=== PATIENT | male | born 1980 | race Caucasian/White ===

== ENCOUNTER 2021-09-01 14:50 | Emergency (ER) | payer SELFPAY ==
[~2021-09-01] VITALS: Ht 180.3 cm; Wt 61.2 kg
[2021-09-01 15:44] LABS: BASOPHILS ABSOLUTE AUTO 0.11 K/mm3 (0.00-0.23); BASOPHILS PERCENT AUTO 1 % (0-2); EOSINOPHILS ABSOLUTE AUTO 0.06 K/mm3 (0.00-0.68); EOSINOPHILS PERCENT AUTO 1 % (0-6); Hematocrit 45.2 % (37.0-53.0); IMMATURE GRAN ABSOLUTE AUTO 0.04 K/mm3 (0.00-0.10); IMMATURE GRAN PERCENT AUTO 0 % (0-1); LYMPHOCYTES ABSOLUTE AUTO 1.07 K/mm3 (0.84-5.20); LYMPHOCYTES PERCENT AUTO 11 % (21-46); MONOCYTES ABSOLUTE AUTO 0.69 K/mm3 (0.16-1.47); MONOCYTES PERCENT AUTO 7 % (4-13); Mean Corpuscular HGB 34.3 pg (26.0-34.0); Mean Corpuscular HGB Conc 33.2 g/dL (31.5-36.5); Mean Corpuscular Volume 103 fL (80-100); Mean Platelet Volume 10.2 fL (9.1-12.4); NEUTROPHILS ABSOLUTE AUTO 7.87 K/mm3 (1.96-9.15); NEUTROPHILS PERCENT AUTO 80 % (41-73); Platelet Count 320 K/mm3 (150-400); Red Blood Cell Count 4.37 M/mm3 (4.30-5.90); White Blood Cell Count 9.84 K/mm3 (4.00-11.30)
[2021-09-01 16:11] LABS: Alanine Aminotransfer (ALT/SGP 228 U/L (12-78); Albumin, Blood 4.3 g/dL (3.4-5.0); Alk Phos 148 U/L (50-136); Anion Gap 6 mmol/L (6-16); Aspartate Aminotrans (AST/SGOT 144 U/L (12-37); Bilirubin, Total 0.5 mg/dL (0.1-1.0); Blood Urea Nitrogen 7 mg/dL (8-24); Bun/Creatinine Ratio 13.1 (12.0-20.0); CO2, Blood 32 mmol/L (21-32); Calcium, Blood 9.4 mg/dL (8.5-10.1); Chloride, Blood 103 mmol/L (98-108); Creatinine, Blood 0.54 mg/dL (0.60-1.20); Globulin, Blood 4.3 g/dL (2.2-4.0); Glomerular Filtration Rate >60 (60-); Glucose, Blood 119 mg/dL (70-99); Potassium, Blood 4.4 mmol/L (3.5-5.5); Sodium, Blood 141 mmol/L (136-145); Total Protein, Blood 8.6 g/dL (6.4-8.2)
== END 2021-09-01 21:01 | disposition home or self-care (01) ==
LOC: ER 14:50
PROVIDERS: Physician Assistant
DX: K59.00 Constipation, unspecified (principal); Z91.013 Allergy to seafood; F17.200 Nicotine dependence, unspecified, uncomplicated; F10.10 Alcohol abuse, uncomplicated
CPT/HCPCS: 36415; 74019; 80053; 85025; 99283-25

== ENCOUNTER 2022-12-12 19:56 | Emergency (ER) | payer SELFPAY ==
[~2022-12-12] VITALS: Ht 180.3 cm; Wt 59.0 kg
[2022-12-12 20:58] LABS: BASOPHILS ABSOLUTE AUTO 0.14 K/mm3 (0.00-0.23); BASOPHILS PERCENT AUTO 1 % (0-2); EOSINOPHILS ABSOLUTE AUTO 0.15 K/mm3 (0.00-0.68); EOSINOPHILS PERCENT AUTO 1 % (0-6); Hematocrit 31.6 % (37.0-53.0); Hemoglobin 10.7 g/dL (13.5-17.5); IMMATURE GRAN ABSOLUTE AUTO 0.04 K/mm3 (0.00-0.10); IMMATURE GRAN PERCENT AUTO 0 % (0-1); LYMPHOCYTES ABSOLUTE AUTO 2.37 K/mm3 (0.84-5.20); LYMPHOCYTES PERCENT AUTO 18 % (21-46); MONOCYTES ABSOLUTE AUTO 1.08 K/mm3 (0.16-1.47); MONOCYTES PERCENT AUTO 8 % (4-13); Mean Corpuscular HGB 31.8 pg (26.0-34.0); Mean Corpuscular HGB Conc 33.9 g/dL (31.5-36.5); Mean Corpuscular Volume 94 fL (80-100); Mean Platelet Volume 10.2 fL (9.1-12.4); NEUTROPHILS ABSOLUTE AUTO 9.33 K/mm3 (1.96-9.15); NEUTROPHILS PERCENT AUTO 71 % (41-73); Platelet Count 198 K/mm3 (150-400); RDW Standard Deviation 57.7 fL (35.1-46.3); Red Blood Cell Count 3.36 M/mm3 (4.30-5.90); White Blood Cell Count 13.11 K/mm3 (4.00-11.30)
[2022-12-12 21:20] LABS: Albumin, Blood 3.3 g/dL (3.4-5.0); Albumin/Globulin Ratio 0.7 (0.8-1.8); Bilirubin, Total 1.1 mg/dL (0.1-1.0); Bun/Creatinine Ratio 46.1 (12.0-20.0); Calcium, Blood 8.9 mg/dL (8.5-10.1); Creatinine, Blood 0.52 mg/dL (0.60-1.20); Globulin, Blood 4.6 g/dL (2.2-4.0); Potassium, Blood 3.7 mmol/L (3.5-5.5); Total Protein, Blood 7.9 g/dL (6.4-8.2)
[2022-12-12 22:46] LABS: Bilirubin, Direct 0.5 mg/dL (0.0-0.3); Bilirubin, Indirect 0.6 mg/dL (0.1-0.7)
[2022-12-12 23:18] LABS: International Normalized Ratio 1.19; Prothrombin Time Results 12.4 Sec (9.7-11.5)
[2022-12-13 02:45] VITALS: BP 118/71
== END 2022-12-13 03:21 | disposition short-term general hospital (02) ==
LOC: ER 19:56
PROVIDERS: Physician Assistant; Student in an Organized Health Care Education/Training Program
DX: K92.2 Gastrointestinal hemorrhage, unspecified (principal); D62 Acute posthemorrhagic anemia; E80.6 Other disorders of bilirubin metabolism; Z91.013 Allergy to seafood; F17.210 Nicotine dependence, cigarettes, uncomplicated
CPT/HCPCS: 76705; 80053; 82248; 82272; 85025; 85610; 85730; 86850; 86900; 86901; 96365; 96366; 96375; 99285-25; C9113; J0696; J2354; J7050

== ENCOUNTER 2023-02-28 18:53 | Inpatient (IN) | payer OTHER ==
[2023-02-28] VITALS (13 sets, daily range): BP systolic 89–108; BP diastolic 52–75
[~2023-02-28] VITALS: Ht 180.3 cm; Wt 52.6 kg
[2023-02-28 19:33] LABS: BASOPHILS ABSOLUTE AUTO 0.01 K/mm3 (0.00-0.23); BASOPHILS PERCENT AUTO 0 % (0-2); EOSINOPHILS PERCENT AUTO 2 % (0-6); IMMATURE GRAN ABSOLUTE AUTO 0.06 K/mm3 (0.00-0.10); IMMATURE GRAN PERCENT AUTO 1 % (0-1); LYMPHOCYTES ABSOLUTE AUTO 2.39 K/mm3 (0.84-5.20); LYMPHOCYTES PERCENT AUTO 22 % (21-46); MONOCYTES ABSOLUTE AUTO 0.98 K/mm3 (0.16-1.47); MONOCYTES PERCENT AUTO 9 % (4-13); Mean Corpuscular HGB 29.5 pg (26.0-34.0); Mean Corpuscular HGB Conc 30.3 g/dL (31.5-36.5); Mean Corpuscular Volume 98 fL (80-100); Mean Platelet Volume 10.6 fL (9.1-12.4); NEUTROPHILS PERCENT AUTO 66 % (41-73); Platelet Count 285 K/mm3 (150-400); RDW Coefficient Variation 16.4 % (11.7-14.2); Red Blood Cell Count 1.22 M/mm3 (4.30-5.90); White Blood Cell Count 10.74 K/mm3 (4.00-11.30)
[2023-02-28 19:38] LABS: Hematocrit 11.9 % (37.0-53.0); Hemoglobin 3.6 g/dL (13.5-17.5)
[2023-02-28 19:46] LABS: Albumin, Blood 2.7 g/dL (3.4-5.0); Albumin/Globulin Ratio 0.8 (0.8-1.8); Bilirubin, Total 0.4 mg/dL (0.1-1.0); Bun/Creatinine Ratio 30.4 (12.0-20.0); Creatinine, Blood 1.48 mg/dL (0.60-1.20); Globulin, Blood 3.4 g/dL (2.2-4.0); Potassium, Blood 3.9 mmol/L (3.5-5.5); Total Protein, Blood 6.1 g/dL (6.4-8.2)
[2023-02-28 20:17] LABS: Magnesium, Blood 2.1 mg/dL (1.6-2.4)
[2023-02-28 20:54] LABS: International Normalized Ratio 1.16; Prothrombin Time Results 12.1 Sec (9.7-11.5)
[2023-02-28 22:13] LABS: U Amphetamine Screen Not Detected; U Barbituate Screen Not Detected; U Benzodiazapine Screen Not Detected; U Buprenorphine Screen Not Detected; U Cannabinoids Screen Not Detected; U Cocaine Screen Not Detected; U Methadone Screen Not Detected; U Methamphetamine Screen Not Detected; U Opiates Screen Not Detected; U Oxycodone Screen Not Detected; U Phencyclidine Screen Not Detected; U Propoxyphene Screen Not Detected
[2023-03-01] VITALS (68 sets, daily range): BP systolic 96–158; BP diastolic 36–103
--- NOTE | 2023-03-01 | NUR ---
PT ARRIVES TO ICU 5 FROM ED AT 2210. PT IN PROCESS OF COMPLETING FIRST OF 3 UNITS PRBC'S. NO S/S TRANSFUSION REACTIONS TO NOTE. PT ALERT AND ORIENTED. PLEASANT AND COOPERATIVE WITH CARE AND ASSESSMENT. GOOD HISTORIAN. WILL REVIEW CHART AND PLAN OF CARE FOR THIS PT.
--- NOTE | 2023-03-01 04:00 | NUR ---
PT COMPLETES 3/3 UNITS PRBC'S. TOLERATED THIS VERY WELL. RECHECK OF AM LABS DONE. PENDING RESULTS. NO S/S BLEEDING. PT HAS VOIDED 450 ML. DOES STATE THAT HE IS FEELING MUCH BETTER AFTER THE TRANSFUSION.
[2023-03-01 05:11] LABS: Hematocrit 22.2 % (37.0-53.0); Hemoglobin 7.3 g/dL (13.5-17.5); Mean Corpuscular HGB 29.8 pg (26.0-34.0); Mean Corpuscular HGB Conc 32.9 g/dL (31.5-36.5); Mean Platelet Volume 10.4 fL (9.1-12.4); Platelet Count 246 K/mm3 (150-400); RDW Coefficient Variation 15.5 % (11.7-14.2); RDW Standard Deviation 49.7 fL (35.1-46.3); Red Blood Cell Count 2.45 M/mm3 (4.30-5.90); White Blood Cell Count 8.16 K/mm3 (4.00-11.30)
[2023-03-01 05:15] LABS: Mean Corpuscular Volume 91 fL (80-100)
[2023-03-01 05:34] LABS: Albumin, Blood 2.5 g/dL (3.4-5.0); Albumin/Globulin Ratio 0.8 (0.8-1.8); Bilirubin, Total 1.9 mg/dL (0.1-1.0); Bun/Creatinine Ratio 29.5 (12.0-20.0); Calcium, Blood 8.2 mg/dL (8.5-10.1); Creatinine, Blood 1.29 mg/dL (0.60-1.20); Globulin, Blood 3.2 g/dL (2.2-4.0); Potassium, Blood 4.1 mmol/L (3.5-5.5); Total Protein, Blood 5.7 g/dL (6.4-8.2)
--- NOTE | 2023-03-01 06:45 | NUR ---
PT ABLE TO MOVE ABOUT BED ON HIS OWN. HAS REMAINED ALERT AND ORIENTED. H/H STABLE WITH HGB 7.3. DR JACKSON HAS COME IN TO UNIT. UPDATE GIVEN. WILL CONTINUE TO MONITOR PT, AND WILL REPORT OFF TO ONCOMING RN.
--- NOTE | 2023-03-01 07:00 | NUR ---
ASSUMPTION OF CARE: ASSUMED CARE OF PATIENT WITH BRIDGET JIMENEZ. PATIENT RESTING COMFORTABLY IN BED. PATIENT DENIES PAIN, NAUSEA OR DISCOMFORT. NO SIGNS/SYMPTOMS OF BLEEDING. HR IN THE 90S. SBPS IN THE 110S - 120S. PATIENT SPO2 >95% ON RA. BREATHING IS EVEN AND REGULAR.
[2023-03-01 08:35] LABS: Hematocrit 21.8 % (37.0-53.0); Hemoglobin 7.2 g/dL (13.5-17.5)
[2023-03-01 13:29] LABS: Hemoglobin 7.2 g/dL (13.5-17.5)
--- NOTE | 2023-03-01 17:09 | NUR ---
DAY SURGERY PT ARRIVING TO SDS VIA GURNEY. PT IS ALERT AND ORIENTED COMMUNICATING TO STAFF APPROPRIATELY. PT'S VSS AND ON CONTINUOUS SPO2 MONITORING. PT'S LS HAVE EXPIRATORY WHEEZE TO SO DUONEB GIVEN PER MD ORDER. PT HAS SANDOSTATIN, PROTONIX GTT'S RUNNING PER EMAR.
--- NOTE | 2023-03-01 17:37 | NUR ---
03/01/23 1737 Camila Love HISTORY, CHART, MEDICATIONS AND ALLERGIES REVIEWED BEFORE START OF PROCEDURE. PATIENT CONFIRMS NPO STATUS AND AGREES WITH SCHEDULED PROCEDURE. 3-LEAD EKG REVIEWED WITH PHYSICIAN PRIOR TO START OF PROCEDURE. MONITOR INTACT WITH CONTINUOUS PULSE OXIMETRY,CAPNOGRAPHY, 3-LEAD EKG, INTERMITTENT BP. SUPPLEMENTAL O2 TO BE TITRATED THROUGHOUT PROCEDURE TO MAINTAIN O2 SATURATION ABOVE 90%. PATIENT DETERMINED TO BE ASA APPROPRIATE FOR PROPOFOL SEDATION PRIOR TO START OF PROCEDURE BY DR. JACKSON.
--- NOTE | 2023-03-01 19:24 | NUR ---
SHIFT SUMMARY: NEURO: PATIENT ALERT AND ORIENTED X4 THROUGHOUT THE SHIFT. PATIENT DENIED PAIN OR DISCOMFORT THROUGHOUT THE SHIFT. PATIENT DENIED NUMBNESS/TINGLING. EQUAL STRENGTH ACROSS EXTREMITIES. CARDIAC: PATIENT DENIES CHEST PRESSURE OR DISCOMFORT. BPS IN THE 110S-120S. HR IN THE 70-90S. RESPIRATORY: PATIENT DENIED SHORTNESS OF BREATH OR DIFFICULTY BREATHING. PATIENT HAS WHEEZES AT TIMES. PATIENT REPORTS LONG HISTORY OF SMOKING. DENIED NEED FOR PATCHES. 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 GI/: PATIENT DENIED NAUSEA OR ABDOMINAL DISCOMFORT. NON-TENDER ABDOMEN WITH PALPATION. ACTIVE BOWEL SOUNDS. NO TARRY STOOL OR BLOODY EMESIS. PATIENT VOIDING WITHOUT DIFFICULTY. MUSCULOSKELETAL: PATIENT ABLE TO REPOSITION INDEPENDENTLY IN BED. ABLE TO STAND AT BEDSIDE TO VOID. PSYCHSOCIAL: PATIENT REPORTED LEAVING HIS JOB AT THE END OF THE SUMMER. PATIENT REPORTED TO RN THAT HE IS DOING OKAY FINANCIALLY. PATIENT VISITED BY A GOOD FRIEND TODAY THAT IS A SOURCE OF SUPPORT. PATIENT CALM AND COOPERATIVE.
--- NOTE | 2023-03-01 21:46 | NUR ---
ASSUMED CARE PT A&O X4; RESTING QUIETLY. PLEASANT AND COOPERATIVE W/ CARE. AMBULATED TO TOILET AT START OF SHIFT, HAS SINCE BEEN SLEEPING.
[2023-03-02] VITALS: BP 100/64
[2023-03-02 03:25] LABS: Hematocrit 22.3 % (37.0-53.0); Hemoglobin 7.4 g/dL (13.5-17.5); Mean Corpuscular HGB 30.3 pg (26.0-34.0); Mean Corpuscular HGB Conc 33.2 g/dL (31.5-36.5); Mean Corpuscular Volume 91 fL (80-100); Mean Platelet Volume 10.1 fL (9.1-12.4); Platelet Count 257 K/mm3 (150-400); RDW Coefficient Variation 17.3 % (11.7-14.2); Red Blood Cell Count 2.44 M/mm3 (4.30-5.90); White Blood Cell Count 7.72 K/mm3 (4.00-11.30)
[2023-03-02 03:42] LABS: Magnesium, Blood 1.6 mg/dL (1.6-2.4)
[2023-03-02 03:43] LABS: Bun/Creatinine Ratio 20.3 (12.0-20.0); Creatinine, Blood 1.23 mg/dL (0.60-1.20); Potassium, Blood 4.3 mmol/L (3.5-5.5)
[2023-03-02 04:00] VITALS: BP 118/80
--- NOTE | 2023-03-02 05:48 | NUR ---
SHIFT SUMMARY PT SLEPT/RESTED QUIETLY THROUGHOUT MOST OF NIGHT. USED CALL LIGHT APPROPRIATELY FOR ASSISTANCE W/ IV MANAGEMENT WHILE AMBULATING TO TOILET. IS WATCHING TV AT TIME OF THIS NOTE W/ NO COMPLAINTS. NO ACUTE EVENTS OVERNIGHT.
--- NOTE | 2023-03-02 07:00 | NUR ---
ASSUMPTION OF CARE: ASSUMED CARE OF PATIENT WITH BRIDGET JIMENEZ. PATIENT RESTING QUIETLY IN BED. PATIENT DENIES PAIN OR DISCOMFORT. SBP IN THE 110S. HR IN THE 80S-LOW 100S. PATIENT DENIES NAUSEA/EMESIS. NO BLOODY/TARRY STOOLS IN THE NIGHT. PATIENT UP IN THE ROOM. PATIENT STEADY ON HIS FEET. PATIENT DENIES DIZZINESS OR SHORTNESS OF BREATH. LUNG SOUND DIMINISHED THROUGHOUT. SPO2 IS 90-92% ON RA WHEN SLEEPING. ONCE PATIENT WAS IN THE CHAIR, SPO2 94%. ASSISTED WITH DEEP BREATHING AND COUGHING.
[2023-03-02 08:00] VITALS: BP 122/77
[2023-03-02] MEDS ORDERED: PANT20 PO (11:42)
[2023-03-02] MEDS ORDERED: FERSU300 PO (11:43)
[2023-03-02] MEDS ORDERED: MULVITA PO (11:44)
[2023-03-02] MEDS ORDERED: NICOTINE GUM2 M1 PO (11:44)
[2023-03-02 12:00] VITALS: BP 117/76
--- NOTE | 2023-03-02 13:25 | NUR ---
DISCHARGE SUMMARY: PATIENT RX FAXED TO [facility] PER PATIENT REQUEST. DISCHARGE INSTRUCTIONS AND EDUCATION PROVIDED. ALL QUESTIONS AND CONCERNS ADDRESSED. PATIENT DISCHARGED IN WHEELCHAIR WITH RN. PATIENT STABLE AT TIME OF DISCHARGE. NEURO: PATIENT DENIED PAIN OR DISCOMFORT THROUGHOUT THE SHIFT. PATIENT ALERT AND ORIENTED X4 THROUGHOUT. PATIENT DENIED NUMBNESS/TINGLING THROUGHOUT. CARDIAC: PATIENT DENIED CHEST PAIN OR DISCOMFORT. HR IN THE 80-90S. MILD TACHYCARDIA (LOW 100S) WITH ACTIVITY. PATIENT DENIED DIZZINESS OR LIGHTHEADEDNESS. SBP IN THE 110S-120S. GI/: PATIENT CONTINUES TO DENY NAUSEA. TOLERATING PO INTAKE WITHOUT GASTRIC DISTRESS OR DISCOMFORT. NO SIGNS OR SYMPTOMS OF BLEEDING. VOIDING CLEAR, DARK YELLOW URINE. DENIES DIFFICULTY VOIDING. PSYCHSOCIAL: PATIENT CALM AND COOPERATIVE. PATIENT REPORTS THAT HE IS LOOKING FOR WORK, BUT DOES HAVE ENOUGH MONEY RIGHT NOW. PATIENT VISITED YESTERDAY BY WINDOWS SECURITY ANALYST TO ASSIST WITH GETTING INSURANCE.
== END 2023-03-02 13:05 | disposition home or self-care (01) | DRG 811 ==
LOC: ER 18:53 → ICUE 21:14 → ERHOLD 21:14 → ICUE 22:10
PROVIDERS: Emergency Medicine; Internal Medicine; Internal Medicine Gastroenterology; Nurse Practitioner Acute Care; ADMIT Internal Medicine
PROC: 30233N1 Transfusion of Nonautologous Red Blood Cells into Peripheral Vein, Percutaneous Approach (ICD-10-PCS; 2023-02-28)
PROC: 0DB68ZX Excision of Stomach, Via Natural or Artificial Opening Endoscopic, Diagnostic (ICD-10-PCS; principal; 2023-03-01 15:00)
DX: D62 Acute posthemorrhagic anemia (principal); K25.4 Chronic or unspecified gastric ulcer with hemorrhage; N17.9 Acute kidney failure, unspecified; K70.30 Alcoholic cirrhosis of liver without ascites; R94.31 Abnormal electrocardiogram [ECG] [EKG]; F10.20 Alcohol dependence, uncomplicated; Z91.013 Allergy to seafood; F17.210 Nicotine dependence, cigarettes, uncomplicated; Z98.890 Other specified postprocedural states
CPT/HCPCS: 36430; 76705; 80048; 80053; 82105; 82728; 83540; 83550; 83735; 85014; 85018; 85025; 85027; 85610; 86850; 86900; 86901; 86923; 88305; 88342; 93005; 93010; 96365; 96367; 96375; 99285-25; C1751; C9113; J0696; J2250; J2354; J2704; J7030; J7050; J7120; P9016

== ENCOUNTER 2023-05-19 01:29 | Emergency (ER) | payer OTHER ==
[~2023-05-19] VITALS: Ht 177.8 cm; Wt 54.4 kg
[~2023-05-19 01:29] MED LIST: FERSU300 PO; MULVITA PO; NICOTINE GUM2 M1 PO; PANT20 PO
[2023-05-19 02:46] LABS: BASOPHILS ABSOLUTE AUTO 0.06 K/mm3 (0.00-0.23); BASOPHILS PERCENT AUTO 1 % (0-2); EOSINOPHILS ABSOLUTE AUTO 0.16 K/mm3 (0.00-0.68); EOSINOPHILS PERCENT AUTO 2 % (0-6); Hematocrit 21.7 % (37.0-53.0); IMMATURE GRAN ABSOLUTE AUTO 0.03 K/mm3 (0.00-0.10); IMMATURE GRAN PERCENT AUTO 0 % (0-1); LYMPHOCYTES ABSOLUTE AUTO 1.89 K/mm3 (0.84-5.20); LYMPHOCYTES PERCENT AUTO 23 % (21-46); MONOCYTES ABSOLUTE AUTO 0.82 K/mm3 (0.16-1.47); MONOCYTES PERCENT AUTO 10 % (4-13); Mean Corpuscular HGB 28.3 pg (26.0-34.0); Mean Corpuscular HGB Conc 32.3 g/dL (31.5-36.5); Mean Corpuscular Volume 88 fL (80-100); Mean Platelet Volume 10.4 fL (9.1-12.4); NEUTROPHILS ABSOLUTE AUTO 5.41 K/mm3 (1.96-9.15); NEUTROPHILS PERCENT AUTO 65 % (41-73); Platelet Count 171 K/mm3 (150-400); RDW Coefficient Variation 18.2 % (11.7-14.2); RDW Standard Deviation 58.2 fL (35.1-46.3); Red Blood Cell Count 2.47 M/mm3 (4.30-5.90); White Blood Cell Count 8.37 K/mm3 (4.00-11.30)
[2023-05-19 03:30] LABS: Albumin, Blood 3.1 g/dL (3.4-5.0); Albumin/Globulin Ratio 0.8 (0.8-1.8); Bilirubin, Total 0.6 mg/dL (0.1-1.0); Bun/Creatinine Ratio 75.8 (12.0-20.0); Calcium, Blood 8.4 mg/dL (8.5-10.1); Creatinine, Blood 0.74 mg/dL (0.60-1.20); Globulin, Blood 3.7 g/dL (2.2-4.0); Potassium, Blood 4.5 mmol/L (3.5-5.5); Total Protein, Blood 6.8 g/dL (6.4-8.2)
[2023-05-19 05:10] LABS: International Normalized Ratio 1.25
[2023-05-19 07:11] VITALS: BP 115/44
== END 2023-05-19 07:15 | disposition short-term general hospital (02) ==
LOC: ER 01:29
PROVIDERS: Student in an Organized Health Care Education/Training Program
DX: K92.2 Gastrointestinal hemorrhage, unspecified (principal); D64.9 Anemia, unspecified; F17.200 Nicotine dependence, unspecified, uncomplicated; Z86.59 Personal history of other mental and behavioral disorders; Z79.899 Other long term (current) drug therapy; Z91.013 Allergy to seafood
CPT/HCPCS: 36430; 80053; 82272; 85025; 85610; 86850; 86900; 86901; 86923; 96365; 96366; 96368; 96375; 96376; 99285-25; C9113; J0696; J1364; J2354; J2405; J7030; J7050; P9016

== ENCOUNTER → 2024-01-03 | Outpatient (CLI) | payer OTHER ==
[2024-01-03 17:20] LABS: BASOPHILS ABSOLUTE AUTO 0.08 K/mm3 (0.00-0.23); BASOPHILS PERCENT AUTO 2 % (0-2); EOSINOPHILS ABSOLUTE AUTO 0.18 K/mm3 (0.00-0.68); EOSINOPHILS PERCENT AUTO 4 % (0-6); Hematocrit 32.2 % (37.0-53.0); Hemoglobin 9.3 g/dL (13.5-17.5); IMMATURE GRAN ABSOLUTE AUTO 0.01 K/mm3 (0.00-0.10); IMMATURE GRAN PERCENT AUTO 0 % (0-1); LYMPHOCYTES ABSOLUTE AUTO 1.13 K/mm3 (0.84-5.20); LYMPHOCYTES PERCENT AUTO 27 % (21-46); MONOCYTES ABSOLUTE AUTO 0.41 K/mm3 (0.16-1.47); MONOCYTES PERCENT AUTO 10 % (4-13); Mean Corpuscular HGB 21.8 pg (26.0-34.0); Mean Corpuscular HGB Conc 28.9 g/dL (31.5-36.5); Mean Corpuscular Volume 76 fL (80-100); Mean Platelet Volume 9.9 fL (9.1-12.4); NEUTROPHILS ABSOLUTE AUTO 2.35 K/mm3 (1.96-9.15); NEUTROPHILS PERCENT AUTO 57 % (41-73); Platelet Count 204 K/mm3 (150-400); RDW Coefficient Variation 25.2 % (11.7-14.2); RDW Standard Deviation 68.9 fL (35.1-46.3); Red Blood Cell Count 4.26 M/mm3 (4.30-5.90); White Blood Cell Count 4.16 K/mm3 (4.00-11.30)
[2024-01-03 17:56] LABS: Percent Saturation 3.6 % (20.0-50.0)
[2024-01-03 17:59] LABS: Albumin, Blood 3.4 g/dL (3.4-5.0); Albumin/Globulin Ratio 0.8 (0.8-1.8); Bilirubin, Total 0.6 mg/dL (0.1-1.0); Bun/Creatinine Ratio 19.1 (12.0-20.0); Calcium, Blood 9.2 mg/dL (8.5-10.1); Creatinine, Blood 0.84 mg/dL (0.60-1.20); Globulin, Blood 4.3 g/dL (2.2-4.0); Potassium, Blood 4.7 mmol/L (3.5-5.5); Total Protein, Blood 7.7 g/dL (6.4-8.2)
== END ==
LOC: LAB SHORT 16:00 → LAB 16:00
PROVIDERS: Nurse Practitioner Family
DX: D50.8 Other iron deficiency anemias (principal)
CPT/HCPCS: 80053; 82728; 83540; 83550; 85025

== ENCOUNTER 2024-03-10 14:01 | Emergency (ER) | payer OTHER ==
[~2024-03-10] VITALS: Ht 165.1 cm; Wt 65.8 kg
[2024-03-10] MEDS ORDERED: Pantoprazole Sodium 40 MG Injection IV ONE ×2 (14:25→15:40)
[2024-03-10 14:55] LABS: BASOPHILS ABSOLUTE AUTO 0.04 K/mm3 (0.00-0.23); BASOPHILS PERCENT AUTO 1 % (0-2); EOSINOPHILS ABSOLUTE AUTO 0.14 K/mm3 (0.00-0.68); EOSINOPHILS PERCENT AUTO 3 % (0-6); Hemoglobin 8.1 g/dL (13.5-17.5); IMMATURE GRAN ABSOLUTE AUTO 0.01 K/mm3 (0.00-0.10); IMMATURE GRAN PERCENT AUTO 0 % (0-1); LYMPHOCYTES ABSOLUTE AUTO 1.03 K/mm3 (0.84-5.20); LYMPHOCYTES PERCENT AUTO 20 % (21-46); MONOCYTES ABSOLUTE AUTO 0.37 K/mm3 (0.16-1.47); MONOCYTES PERCENT AUTO 7 % (4-13); Mean Corpuscular HGB 23.7 pg (26.0-34.0); Mean Corpuscular Volume 79 fL (80-100); Mean Platelet Volume 9.6 fL (9.1-12.4); NEUTROPHILS ABSOLUTE AUTO 3.63 K/mm3 (1.96-9.15); NEUTROPHILS PERCENT AUTO 70 % (41-73); Platelet Count 159 K/mm3 (150-400); RDW Coefficient Variation 23.9 % (11.7-14.2); RDW Standard Deviation 69.2 fL (35.1-46.3); Red Blood Cell Count 3.42 M/mm3 (4.30-5.90); White Blood Cell Count 5.22 K/mm3 (4.00-11.30)
[2024-03-10 15:13] LABS: Albumin/Globulin Ratio 0.9 (0.8-1.8); Bilirubin, Total 0.8 mg/dL (0.1-1.0); Bun/Creatinine Ratio 44.3 (12.0-20.0); Calcium, Blood 8.7 mg/dL (8.5-10.1); Creatinine, Blood 0.86 mg/dL (0.60-1.20); Globulin, Blood 3.5 g/dL (2.2-4.0); International Normalized Ratio 1.14; Potassium, Blood 4.7 mmol/L (3.5-5.5); Prothrombin Time Results 12.1 Sec (9.7-11.5); Total Protein, Blood 6.5 g/dL (6.4-8.2)
[2024-03-10] MEDS ORDERED: CefTRIAXone Sodium 1,000 MG in NS 50 ML IV ONE (15:40)
[2024-03-10] MEDS ORDERED: Octreotide Acetate 50 MCG in NS 50 ML IV ONE (17:15)
[2024-03-10 18:30] VITALS: BP 126/69
== END 2024-03-10 19:15 | disposition short-term general hospital (02) ==
LOC: ER 14:01
PROVIDERS: Emergency Medicine
DX: K92.0 Hematemesis (principal); K92.1 Melena; F17.200 Nicotine dependence, unspecified, uncomplicated; Z91.09 Other allergy status, other than to drugs and biological substances; Z91.013 Allergy to seafood; Z79.899 Other long term (current) drug therapy
CPT/HCPCS: 80053; 82947; 85025; 85610; 93005; 93010; 96365; 96367; 96375; 99285-25; J0696; J2354; J2470